=== PATIENT | male | born 1990 | race Caucasian/White ===

== ENCOUNTER 2017-09-03 10:23 | Outpatient (CLI) | payer BC ==
--- NOTE | 2017-09-03 13:52 | CT ---
CT ABDOMEN AND PELVIS WITH AND WITHOUT IV CONTRAST: HISTORY: Gross hematuria, kidney stones. FINDINGS: Comparison is made with the exam of 05/31/14. The lung bases are clear. The liver, spleen, pancreas, and adrenal glands are normal. No calcified gallstones are seen. No calculi are seen in the kidneys or the ureters. There is faint punctate calcific density in the d ependent portions of the urinary bladder which may represent a recently passed punctate calculus. No hydroureteral nephrosis is seen on either side. There is normal contrast enhancement of the kidneys and normal excretion into the ureters and the urinary bladder. No renal masses are seen. No free air is identified. There is a tiny amount of free fluid in the pelvis. There is fecal mater ial in the colon. No acute osseous abnormalities are seen. IMPRESSION: 1. Questionable punctate calculus in the urinary bladder. No evidence of renal calculi, urinary tra ct obstruction, or renal mass. 2. A tiny amount of free fluid in the pelvis. POS: [facility]
[2017-09-03] MEDS ORDERED: Iopamidol 370 76% 100 ML VIAL ONE (15:07)
== END 2017-09-03 10:24 | disposition home or self-care (01) ==
LOC: BICCT 10:23
PROVIDERS: ATTEND Urology
DX: R31.0 Gross hematuria (principal); Z84.1 Family history of disorders of kidney and ureter; Z80.51 Family history of malignant neoplasm of kidney
CPT/HCPCS: 74178